=== PATIENT | male | born 1980 | race Caucasian/White ===

== ENCOUNTER 2017-06-20 12:45 | Emergency (ER) | payer MEDICAID ==
[~2017-06-20] VITALS: Ht 170.2 cm; Wt 88.8 kg
[2017-06-20 13:15] VITALS: Ht 170.2 cm; Wt 88.8 kg
--- NOTE | 2017-06-20 14:12 | ERD ---
ER Documentation Chief Complaint Chief Complaint left leg pain x 6 days HPI 37-year-old male presents with a history of soccer injury to the left calf and has been having pain and swelling since 6 days ago. Patient was seen at a clinic outside and was referred to the emergency department to rule out DVT. He reports that the pain and injury from soccer, he is not able to recall exactly what the mechanism was. He has achy pain, worse when he weight bears, better at rest and is diffuse in the calf and has subsequently developed swelling and bruising. The pain is localized to the calf. ROS All systems reviewed and are negative except as per history of present illness. Medications Home Meds Active Scripts Ibuprofen* (Motrin*) 600 Mg Tab, 600 MG PO Q6, #30 TAB Prov:SANTY JULIAN PA-C 06/20/17 Allergies Allergies: Coded Allergies: No Known Allergy (Unverified , 06/20/17) PMhx/Soc Medical and Surgical Hx: pt denies Medical Hx, pt denies Surgical Hx Hx Alcohol Use: No Hx Substance Use: No Hx Tobacco Use: No Smoking Status: Never smoker Physical Exam Vitals Vital Signs Date Time Temp Pulse Resp B/P Pulse Ox O2 Delivery O2 Flow Rate FiO2 06/20/17 13:15 98.0 72 18 124/80 99 Physical Exam General: Well-developed, well-nourished. The patient appears in no acute distress. HEENT: Head is normocephalic, atraumatic. No scleral icterus. Neck: Supple. Nontender. Lungs: Clear to auscultation. Normal air movement. Heart: Regular rate and rhythm. S1 and S2 are normal. No murmurs, gallops, or rubs. Abdomen: Soft, nontender, nondistended. Bowel sounds are normoactive. Extremities: Tender over the left gastroc, there is swelling and ecchymosis. Patient is able to flex the gastroc, Achilles is intact. There is secondary edema and ecchymosis at the left ankle. Distal pulses 2+ bilaterally. There is no warmth, no erythema. He has full range of motion at the left knee and left ankle flexion extension. Neurologic: Alert and oriented 3. No focal deficits. Skin: Normal turgor. No rash or lesions. Results 24 hrs DIAGNOSTIC IMAGING REPORT Patient: KAYLEEN JOY : 1980 Age: 37 Sex: M MR #: [id number] DOS: 06/20/17 1328 Ordering MD: SANTY JULIAN PA-C Location: [facility] Room/Bed: PROCEDURE: US DVT. CLINICAL INDICATION: Left calf injury TECHNIQUE: Multiple longitudinal and transverse images of the left lower extremity veins were obtained with ray scale and color Doppler imaging. 2D grayscale measurements with compression, color Doppler flow, and augmentation was performed. The calf veins were interrogated as well. COMPARISON: No prior studies are available for comparison. FINDINGS: The left common femoral, superficial femoral and popliteal veins are normally compressible throughout. Color flow demonstrates normal filling of the vessel. Normal waveforms are visualized and there is normal response to augmentation. The calf veins are visualized and are equally unremarkable. IMPRESSION: 1. No evidence of a deep vein thrombosis involving the left lower extremity. RPTAT: RR .Dickson Becerra MD MD Date Time Electronically viewed and signed by .Dickson Becerra MD, MD on 06/20/2017 14:23 .d/ CC: SANTY JULIAN PA-C Procedures/MDM Course: Patient's left calf was wrapped in [place] bandage, he was given crutches to be weightbearing as tolerated. Splint Assessment: Neurovascularly intact post splint placement with good fit. MDM: 37 year old male comes to the a soccer injury, coming in with left-sided calf pain, patient presents with a calf strain, no evidence of DVT on the ultrasound. Patient is neurovascularly intact. No evidence of Achilles tendon rupture, cellulitis. The patient will be advised to continue ibuprofen. Departure Diagnosis: Primary Impression: Strain of calf muscle Condition: SANTY Tena PA-C Jun 20, 2017 14:12
--- NOTE | 2017-06-20 14:23 | RADRPT ---
PROCEDURE: US DVT. CLINICAL INDICATION: Left calf injury TECHNIQUE: Multiple longitudinal and transverse images of the left lower extremity veins were obta ined with ray scale and color Doppler imaging. 2D grayscale measurements with compression, color D oppler flow, and augmentation was performed. The calf veins were interrogated as well. COMPARISON: No prior studies are available for comparison. FINDINGS: The left common femoral, superficial femoral and popliteal veins are normally compressible throughou t. Color flow demonstrates normal filling of the vessel. Normal waveforms are visualized and there is normal response to augmentation. The calf veins are visualized and are equally unremarkable. IMPRESSION: 1. No evidence of a deep vein thrombosis involving the left lower extremity. RPTAT: RR .Dickson Becerra MD, Date Time Electronically viewed and signed by .Dickson Becerra MD, MD on 06/20/2017 14:23 .d/
[2017-06-20] MEDS ORDERED: IBUP-1542 PO (14:32)
== END 2017-06-20 15:05 | disposition home or self-care (01) ==
LOC: FTE 12:45
DX: S86.812A Strain of other muscle(s) and tendon(s) at lower leg level, left leg, initial encounter (principal); W21.02XA Struck by soccer ball, initial encounter; Y92.9 Unspecified place or not applicable
CPT/HCPCS: 93971; Z7502